=== PATIENT | female | born 1965 | race Caucasian/White ===

== ENCOUNTER 2017-11-16 04:22 | Observation (INO) ==
[2017-11-16] MEDS ORDERED: Dextrose Gel 15 GM/37.5 ML TUBE PO PRN ×2 (05:41)
[2017-11-16] MEDS ORDERED: *HR* Dextrose 50 % in Water (Syg) 50 ML SYRINGE IVP PRN (05:41)
[2017-11-16] MEDS ORDERED: Naloxone 0.4 MG/ML INJ IVP PRN (05:41)
[2017-11-16] MEDS ORDERED: D5% in Water 1,000 ML IVC PRN (05:41)
[2017-11-16] MEDS ORDERED: Acetaminophen 325 MG TABLET PO PRN (05:47)
[2017-11-16] MEDS ORDERED: *HR* HYDROcodone/Acet 5/325 mg TABLET PO PRN (05:47)
--- NOTE | 2017-11-16 05:59 | Internal Med History&Physical ---
Date of Encounter: 11/16/17 Time of Encounter: 05:15 Internal Medicine - H&P: HPI Chief complaint: chest pain Admitted From: Hospital to Hospital Transfer Plans for Post Hospital Care: Home History of present illness: Ms. John is a 52 year old female who presents in transfer from [facility] ER for complaints of chest pain. She presented there with chest pain that was resolved with minimal treatment. She was due to be admitted to the hospital service at [facility]. However, patient admission was canceled due to lack of cardiology staffing. Patient and physician therefore requested to transfer patient to [facility]. I accepted the patient in transfer. Upon my assessment of the patient, she is chest pain-free now and has no shortness of breath. She states her chest pain started yesterday abruptly without any exertion or activity. The pain kept recurring and was dull and achy with some stabbing nature to it. She has had no associated dyspnea or diaphoresis. She is diabetic and has risk factors for heart disease. Of note, however, is that she had a left heart catheterization in April of this year documenting minimal coronary disease of roughly 20% obstruction. She denies any history of blood clots, prolonged travel, or family history of blood clots. I spoke with the ER staff at [facility] and requested a d-dimer to be drawn. D- dimer was normal. I reviewed her EKG from [facility] and it appears to be normal with no acute ST-T wave changes. I also reviewed her recent Heart catheterization from earlier this year. Past Med Surg Social Fam HX - Past Medical History Attestation: Yes The following information was validated with the patient. Source: patient, old records reviewed, other ([facility] records) Medical history: asthma, diabetes, GERD, hyperlipidemia, hypertension, thyroid disease Additional medical history: OBESITY, CARPAL TUNNEL RIGHT WRIST Psychiatric history: no psych history - Past Surgical History Surgical History: cholecystectomy, hysterectomy, orthopedic, other Additional surgical history: r hand,back,bladder,shoulder - Social History Smoking Status: Never smoker Smokeless Tobacco Status: No Alcohol use: none Drug use: none Current living situation: Home, With Family Activity Level: Independent ambulation Recent Out of Country Travel Within the Last 8 Weeks: No - Family History Mother Living Status: Hx Family Cardiac Disorders: Yes Father Living Status: Hx Family Cardiac Disorders: No Internal Medicine - H&P: Meds Aspirin Enteric Coated [Aspirin EC] 81 mg PO DAILY 12/17/14 [History] Albuterol Sulfate [Ventolin Hfa] 2 puff IH Q4-6H PRN 10/23/15 [History] Ezetimibe [Zetia] 10 mg PO DAILY 10/23/15 [History] Insulin Regular, Human [Humulin R U-500 Kwikpen] 60 - 150 unit SQ TIDWM #0 10/22 [History] Metoprolol [Lopressor] 25 mg PO BID 10/23/15 [History] Melatonin [Melatin] 6 mg PO HS PRN 04/19/17 [History] amLODIPine [Norvasc] 5 mg PO DAILY 04/19/17 [History] Buspirone HCl [Buspar] 10 mg PO BID 05/26/17 [History] Fenofibrate Nanocrystallized [Tricor] 145 mg PO DAILY 05/26/17 [History] Lansoprazole [Prevacid] 30 mg PO QAM #20 capsule. 05/28/17 [Rx] Atorvastatin [Lipitor] 40 mg PO HS 06/29/17 [History] Citalopram Hydrobromide [Citalopram HBr] 40 mg PO DAILY 06/29/17 [History] Dicyclomine [Bentyl] 20 mg PO QID 06/29/17 [History] Gabapentin [Neurontin] 600 mg PO TID 06/29/17 [History] Levothyroxine Sodium [Synthroid] 200 mcg PO DAILY 06/29/17 [History] Meloxicam [Mobic] 15 mg PO DAILY 06/29/17 [History] Omeprazole [PriLOSEC] 40 mg PO DAILY 06/29/17 [History] OxyCODONE/APAP 5/325 [Percocet 5/325 MG] 1 tab PO BID PRN 06/29/17 [History] Sitagliptin Phos/Metformin HCl [Janumet 50-1,000 mg Tablet] 1 tab PO DAILY 06/29 [History] Ondansetron ODT [Zofran ODT] 4 mg SL Q6HR #10 tab.kvng 08/09/17 [Rx] Omeprazole 20 mg PO DAILY #30 tablet. 08/11/17 [Rx] Sucralfate [Carafate] 1 gm PO [facility] #56 tablet 08/11/17 [Rx] 3 Allergy/AdvReac Type Severity Reaction Status Date / Time ibuprofen [From Motrin] AdvReac Gastrointestinal Verified 06/29/17 07:35 Upset propoxyphene AdvReac Gastrointestinal Verified 06/29/17 07:35 [From Darvocet-N] Upset - Constitutional Constitutional: no chills, no fever(s) - EENT Eyes: no blurry vision, no change in vision Ears: no ear pain, no tinnitus Nose, mouth and throat: no nasal congestion, no sinus pressure, no sore throat - Cardiovascular Cardiovascular ROS IM: chest pain, no diaphoresis, no dyspnea, no dyspnea on exertion, no orthopnea, no syncope - Respiratory Respiratory: no cough, no hemoptysis, no chest congestion, no excessive phlegm production, no change in phlegm color - Gastrointestinal Gastrointestinal: no abdominal pain, no diarrhea, no hematemesis, no hematochezia, no melena, no vomiting - Genitourinary Genitourinary: no dysuria, no flank pain, no hematuria - Musculoskeletal Musculoskeletal ROS IM: no arthralgias, no back pain, no muscle cramps, no muscle weakness - Integumentary Integumentary IM: no rash, no jaundice - Neurological Neurological ROS: no dizziness, no focal weakness, no frequent falls, no headache(s) - Psychiatric Psychiatric: no anxiety, no depression - Endocrine Endocrine IM: no polydipsia, no polyuria - Allergic/Immunologic Allergic/Immunologic: no wheezing, no GI upset with certain foods - Constitutional Vitals: Temp Pulse Resp BP Pulse Ox 98.2 F 82 16 177/79 96 11/16/17 04:29 11/16/17 04:29 11/16/17 04:29 11/16/17 04:29 11/16/17 04:29 General appearance: Present: cooperative, A&O X 3, pleasant, no acute distress, answers questions appropriately Exam: see below - Head Head exam: Present: normal inspection - Eye Eye exam: Present: EOMI, PERRL. Absent: scleral icterus Pupils: Present: normal accommodation - ENT ENT exam: Present: mucous membranes dry, normal exam, normal oropharynx - Neck Neck exam general surgery: Present: full ROM, supple. Absent: tenderness, nuchal rigidity, thyromegaly - Respiratory Respiratory exam: Present: chest wall tenderness (reproducible left sided chest wall pain -- identical to pain she had at home), CTAB. Absent: rales, rhonchi, wheezes - Cardiovascular Cardiovascular exam: Present: distant heart sounds, RRR, +S1, +S2. Absent: diastolic murmur, systolic murmur - GI/Abdominal GI/Abdominal exam: Present: normal bowel sounds, soft. Absent: hepatomegaly, mass, splenomegaly, tenderness - Extremities Exam Extremities exam: Present: full ROM, normal capillary refill, warm, radial pulses palpable and symmetrical. Absent: calf tenderness, joint swelling, pedal edema, tenderness - Back Exam Back exam: Absent: CVA tenderness (L), CVA tenderness (R) - Neurological Exam Neurological exam: Present: alert, CN II-XII intact, oriented X3, no focal deficits - Psychiatric Psychiatric exam: Present: normal affect, normal mood - Skin Skin exam: Present: dry, intact, warm Internal Med - H&P Results - Labs Labs: I reviewed her labs from [facility] they include the following: WBC 10.0 Hemoglobin 12.3 Hematocrit 36.5 Platelets 289 Sodium 140 Potassium 4.2 Chloride 107 Carbon dioxide 23 Glucose 275 BUN 14 Creatinine 0.73 Troponin less than 0.03 D-dimer 221 (negative) - EKG Data -: EKG Interpreted by Myself - EKG Data Prior EKG available for review: no EKG comments: 11/16/17 06:04 NSR; no acute ST-T changes - Assessment and plan (1) Chest pain Current Visit: Yes Status: Acute Assessment and plan: 1. Will trend troponins and EKG's. 2. Will consult cardiology if above abnormal. 3. Recent [facility] results reviewed and essentially negative. 4. Suspect musculoskeletal etiology as pain is easily reproducible on palpation. Qualifiers: Chest pain type: intercostal pain Qualified Code(s): R07.82 - Intercostal pain (2) IDDM (insulin dependent diabetes mellitus) Current Visit: Yes Status: Chronic Assessment and plan: 1. Will place on SSI and monitor glucose. 2. Resume home basal insulin once meds confirmed. (3) DVT prophylaxis Current Visit: Yes Status: Acute Assessment and plan: 1. Heparin SQ.
[2017-11-16 06:11] LABS: Hemoglobin 12.3 g/dL (11.5-15.4); Immature Granulocytes % 1.2 % (0-4); Lymphocytes % 9.5 %; Mean Corpuscular HGB Conc 33.2 g/dL (31.6-35.5); Mean Corpuscular Hemoglobin 27.5 pg (28.0-33.3); Mean Corpuscular Volume 82.8 fL (83.0-100.0); Mean Platelet Volume 8.7 fL (9.4-12.4); Platelet Count 245 K/mcL (140-400); Red Blood Count 4.47 M/mcL (3.82-4.97); Segmented Neutrophils % 88.1 %
[2017-11-16 06:12] LABS: Basophils % 0.2 %; Lymphocytes # 1.1 K/mcL (0.6-4.6); Monocytes # 0.1 K/mcL (0.0-1.3); Neutrophils # 10.6 K/mcL (1.6-8.9)
[2017-11-16 06:20] LABS: Prothrombin Time 11.4 Seconds (9.4-12.1)
[2017-11-16 06:24] LABS: Activated Partial Thrombo Time 33.4 Seconds (26.0-36.0)
[2017-11-16 06:25] LABS: Alanine Aminotransferase 21 Units/L (7-52); Albumin 4.1 g/dL (3.5-5.7); Albumin/Globulin Ratio 1.5 (1.1-2.2); Alkaline Phosphatase 70 Units/L (34-104); Aspartate Amino Transferase 11 Units/L (13-39); BUN/Creatinine Ratio 26 (6-26); Bilirubin,Total 0.3 mg/dL (0.3-1.0); Blood Urea Nitrogen 17 mg/dL (6-20); Calcium 9.3 mg/dL (8.6-10.3); Carbon Dioxide 23 mEq/L (23-29); Chloride 106 mEq/L (98-107); Globulin 2.8 g/dL (2.4-3.5); Glucose 266 mg/dL (70-105); Magnesium 2.1 mg/dL (1.6-2.6); Osmolality,Calculated 295 (280-300); Sodium 137 mEq/L (136-145); Total Protein 6.9 g/dL (6.4-8.9); eGFR For Non-African Americans > 60 (> 60)
[2017-11-16] MEDS: *HR* Heparin 5,000 UNIT/ML VIAL SQ SCH ×2 (06:25→14:03)
[2017-11-16] MEDS: Insulin LISPRO 300 UNITS/3 ML VIAL SQ SCH ×2 (08:50→11:49)
[2017-11-16] MEDS ORDERED: Gabapentin 300 MG CAPSULE PO SCH (09:00)
[2017-11-16] MEDS ORDERED: Valsartan 160 MG TABLET PO SCH (09:00)
[2017-11-16] MEDS ORDERED: amLODIPine 5 MG TABLET PO SCH (09:00)
[2017-11-16] MEDS ORDERED: Fenofibrate 54 MG TABLET PO SCH (09:00)
[2017-11-16] MEDS ORDERED: hydroCHLOROthiazide 25 MG TABLET PO SCH (09:00)
[2017-11-16] MEDS ORDERED: Aspirin Enteric Coated 81 MG Tablet PO SCH (09:00)
[2017-11-16] MEDS ORDERED: Sucralfate 1 GM TABLET PO SCH (11:30)
[2017-11-16 11:38] VITALS: BP 128/75
--- NOTE | 2017-11-16 14:07 | Discharge Summary ---
- NOTES TO OUTPATIENT PROVIDER Notes to Outpatient Provider: Chest pain, likely musculoskeletal; Orders not resulted at time of discharge: Pending orders 11/16/17 18:00 Troponin I Q6H 11/17/17 04:00 Lipid Panel AM 0400 Date of Encounter: 11/16/17 Time of Encounter: 09:00 - Discharge Diagnosis (1) Chest pain Priority: Primary Status: Acute Qualifiers: Chest pain type: intercostal pain Qualified Code(s): R07.82 - Intercostal pain (2) IDDM (insulin dependent diabetes mellitus) Priority: Secondary Status: Chronic (3) Essential hypertension Priority: Secondary Status: Chronic (4) Hypothyroidism Priority: Secondary Status: Chronic Qualifiers: Hypothyroidism type: unspecified Qualified Code(s): E03.9 - Hypothyroidism , unspecified Hospital course: Ms. John is a 52 year old female with the above medical problems, who was admitted with sudden new onset of retrosternal chest pain. Patient does follow with cardiology as an outpatient due to chronic issues with chest pain and also underwent left heart catheterization in Apr 2017, that showed minimal coronary artery disease with about 20% stenosis in mid LAD and mid RCA. Patient's initial labs, chest x-ray and EKG showed no acute abnormality. Serial troponins and telemetry remained uneventful. She was noted to have elevated blood pressure and sugars at admission, which are now better controlled after receiving her home medications. She is medically stable for discharge with outpatient cardiology follow-up. Discharge discussed with: patient, nurse - Time Spent with Patient Total time spent providing and/or coordinating discharge services: Greater than 30 minutes (40 min) - Discharge Medications Home Medications: Aspirin Enteric Coated [Aspirin EC] 81 mg PO DAILY 12/17/14 [History] Albuterol Sulfate [Ventolin Hfa] 2 puff IH Q4-6H PRN 10/23/15 [History] Ezetimibe [Zetia] 10 mg PO DAILY 10/23/15 [History] Insulin Regular, Human [Humulin R U-500 Kwikpen] 60 - 150 unit SQ TIDWM #0 10/22 [History] Metoprolol [Lopressor] 25 mg PO BID 10/23/15 [History] Melatonin [Melatin] 6 mg PO HS PRN 04/19/17 [History] amLODIPine [Norvasc] 5 mg PO DAILY 04/19/17 [History] Buspirone HCl [Buspar] 10 mg PO BID 05/26/17 [History] Fenofibrate Nanocrystallized [Tricor] 145 mg PO DAILY 05/26/17 [History] Citalopram Hydrobromide [Citalopram HBr] 40 mg PO DAILY 06/29/17 [History] Dicyclomine [Bentyl] 20 mg PO QID 06/29/17 [History] Gabapentin [Neurontin] 600 mg PO TID 06/29/17 [History] Meloxicam [Mobic] 15 mg PO DAILY 06/29/17 [History] Omeprazole [PriLOSEC] 40 mg PO DAILY 06/29/17 [History] Sitagliptin Phos/Metformin HCl [Janumet 50-1,000 mg Tablet] 1 tab PO DAILY 06/29 [History] Ondansetron ODT [Zofran ODT] 4 mg SL Q6HR #10 tab.rapdis 08/09/17 [Rx] Sucralfate [Carafate] 1 gm PO QIDAC #56 tablet 08/11/17 [Rx] Atorvastatin Calcium [Lipitor] 80 mg PO HS 11/16/17 [History] Levothyroxine Sodium [Levoxyl] 200 mcg PO DAILY 11/16/17 [History] Olmesartan/Hydrochlorothiazide [Benicar Hct 20-12.5 mg Tablet] 1 tab PO DAILY [History] Oxycodone HCl/Acetaminophen [Percocet 7.5-325 mg Tablet] 1 tab PO TID PRN [History] Allergies/Adverse Reactions: 3 Allergy/AdvReac Type Severity Reaction Status Date / Time ibuprofen [From Motrin] AdvReac Gastrointestinal Verified 06/29/17 07:35 Upset propoxyphene AdvReac Gastrointestinal Verified 06/29/17 07:35 [From Darvocet-N] Upset Date of admission: 11/16/17 04:22 Primary care physician: PCP NONE Discharging clinician: Niharika Morfin Anticipated date of discharge: 11/16/17 - Constitutional Vitals: Temp Pulse Resp BP Pulse Ox 97.9 F 61 16 128/75 96 11/16/17 11:36 11/16/17 11:36 11/16/17 11:36 11/16/17 11:36 11/16/17 11:36 General appearance: Present: cooperative, A&O X 3, pleasant, answers questions appropriately Exam: . - Cardiovascular Cardiovascular exam: Present: RRR, +S1, +S2. Absent: diastolic murmur, gallop, rubs, systolic murmur - Patient Status Disposition: Home, Self-Care Condition: Good Functional capacity at discharge: independent ambulation Overall status at discharge: patient is progressing back to baseline - Discharge Instructions Follow Up With: NONE,PCP [Primary Care Provider] - Additional Instructions: F/up with PCP in 1-2 weeks F/up with Cardiology as needed - Diet and Activity Activity: resume usual activities as tolerated Diet: diabetic diet, low fat, low cholesterol, low salt diet
[2017-11-16] MEDS ORDERED: Insulin LISPRO 300 UNITS/3 ML VIAL SQ SCH (21:00)
--- NOTE | 2017-11-19 13:08 | Electrocardiograph Report ---
[address] [place] [address] Test Date: 2017-11-16 Pat Name: Sylwia John Department: 112 Room: 2A Gender: F Lawyer Criminal: : 1965 Requested By: Taran Acuna Order Number: [id number] Reading MD: Bassam Ricks Measurements Intervals Isabella Rate: 86 P: AL: 0 QRS: 79 QRSD: 100 T: 38 QT: 368 QTc: 411 Interpretive Statements SINUS RHYTYM WITH PACS ABNORMAL RHYTHM ECG Electronically Signed On 11-19-2017 13:06:39 EDT by Bassam Ricks
== END 2017-11-16 14:45 | disposition home or self-care (01) ==
LOC: 2ANU → SUATTDRO 04:22
PROVIDERS: ADMIT Pediatrics; ATTEND Internal Medicine

== ENCOUNTER 2019-07-09 20:51 | Observation (INO) ==
[2019-07-09] MEDS ORDERED: Aspirin 81 MG TAB.CHEW PO ONE (20:57)
[2019-07-09 21:09] LABS: Basophils % 0.4 %; Eosinophils # 0.1 K/mcL (0.0-0.6); Eosinophils % 1.1 %; Hemoglobin 12.7 g/dL (11.5-15.4); Immature Granulocytes % 0.7 % (0-4); Lymphocytes # 2.8 K/mcL (0.6-4.6); Lymphocytes % 30.3 %; Mean Corpuscular HGB Conc 32.6 g/dL (31.6-35.5); Mean Corpuscular Hemoglobin 27.5 pg (28.0-33.3); Mean Corpuscular Volume 84.6 fL (83.0-100.0); Mean Platelet Volume 8.7 fL (9.4-12.4); Monocytes # 0.6 K/mcL (0.0-1.3); Neutrophils # 5.7 K/mcL (1.6-8.9); Platelet Count 278 K/mcL (140-400); Red Blood Count 4.61 M/mcL (3.82-4.97); Red Cell Distribution Width 13.3 % (11.5-14.5); Segmented Neutrophils % 61.5 %; White Blood Count 9.2 K/mcL (4.3-11.1)
[2019-07-09] MEDS: Nitroglycerin 0.4 MG TAB.SUBL SL PRN ×3 (21:10→21:22)
[2019-07-09 21:14] LABS: INR 1.1
[2019-07-09 21:17] LABS: Activated Partial Thrombo Time 40.1 Seconds (26.0-36.0)
[2019-07-09 21:33] LABS: BUN/Creatinine Ratio 34 (6-26); Blood Urea Nitrogen 42 mg/dL (6-20); Calcium 9.5 mg/dL (8.6-10.3); Carbon Dioxide 22 mEq/L (23-29); Chloride 100 mEq/L (98-107); Glucose 318 mg/dL (70-105); Osmolality,Calculated 299 (280-300); Potassium 4.2 mEq/L (3.5-5.1); Sodium 133 mEq/L (136-145); Troponin I < 0.03 ng/mL (< 0.04); eGFR For African Americans 55 (> 60); eGFR For Non-African Americans 46 (> 60)
[2019-07-09] MEDS ORDERED: Ondansetron ODT 4 MG TAB.RAPDIS SL PRN (23:38)
[2019-07-09] MEDS ORDERED: Albuterol 2.5 MG/3 ML NEBULIZER IH PRN (23:38)
[2019-07-09] MEDS ORDERED: *HR* Dextrose 50 % in Water (Syg) 50 ML SYRINGE IVP PRN (23:38)
[2019-07-09] MEDS ORDERED: Naloxone 0.4 MG/ML INJ IVP PRN (23:38)
[2019-07-09] MEDS ORDERED: Dextrose Gel 15 GM/37.5 ML TUBE PO PRN ×2 (23:38)
[2019-07-09] MEDS ORDERED: D5% in Water 1,000 ML IVC PRN (23:38)
[2019-07-09] MEDS ORDERED: GI Cocktail 40 ML EACH PO ONE (23:46)
[2019-07-09] MEDS ORDERED: Melatonin 3 MG TABLET PO PRN (23:49)
[2019-07-10 00:30] LABS: VBG HCO3 25 mEq/L (21-27); VBG PCO2 46 mmHg (41-51); VBG PH 7.35 pH Units (7.32-7.42); VBG PO2 45 mmHg (25-50)
[2019-07-10 00:30] LABS: Basophils % 0.3 %; Eosinophils # 0.1 K/mcL (0.0-0.6); Eosinophils % 1.4 %; Hemoglobin 12.4 g/dL (11.5-15.4); Immature Granulocytes % 0.4 % (0-4); Lymphocytes # 2.4 K/mcL (0.6-4.6); Lymphocytes % 25.5 %; Mean Corpuscular HGB Conc 32.6 g/dL (31.6-35.5); Mean Corpuscular Hemoglobin 27.4 pg (28.0-33.3); Mean Corpuscular Volume 84.1 fL (83.0-100.0); Mean Platelet Volume 8.6 fL (9.4-12.4); Monocytes # 0.5 K/mcL (0.0-1.3); Monocytes % 5.4 %; Neutrophils # 6.2 K/mcL (1.6-8.9); Platelet Count 260 K/mcL (140-400); Red Blood Count 4.52 M/mcL (3.82-4.97); Red Cell Distribution Width 13.2 % (11.5-14.5); White Blood Count 9.2 K/mcL (4.3-11.1)
[2019-07-10] MEDS: Gabapentin 300 MG CAPSULE PO SCH ×3 (00:37→15:23)
[2019-07-10] MEDS: 0.9 % Sodium Chloride 1,000 ML IVC SCH ×2 (00:38→05:48)
[2019-07-10] MEDS: Insulin LISPRO 300 UNITS/3 ML VIAL SQ SCH ×3 (00:38→14:59)
[2019-07-10 00:46] LABS: Alanine Aminotransferase 14 Units/L (7-52); Albumin 4.4 g/dL (3.5-5.7); Albumin/Globulin Ratio 1.4 (1.1-2.2); Alkaline Phosphatase 76 Units/L (34-104); Aspartate Amino Transferase 8 Units/L (13-39); BUN/Creatinine Ratio 35 (6-26); Bilirubin,Total 0.2 mg/dL (0.3-1.0); Blood Urea Nitrogen 38 mg/dL (6-20); Calcium 9.2 mg/dL (8.6-10.3); Carbon Dioxide 23 mEq/L (23-29); Chloride 103 mEq/L (98-107); Globulin 3.1 g/dL (2.4-3.5); Glucose 220 mg/dL (70-105); Magnesium 2.1 mg/dL (1.6-2.6); Osmolality,Calculated 298 (280-300); Phosphorous 4.3 mg/dL (2.7-4.5); Potassium 4.2 mEq/L (3.5-5.1); Sodium 136 mEq/L (136-145); Total Protein 7.5 g/dL (6.4-8.9); eGFR For African Americans > 60 (> 60); eGFR For Non-African Americans 52 (> 60)
[2019-07-10] MEDS ORDERED: Ipratropium/Albuterol Neb 3 ML ONE (00:59)
[2019-07-10] MEDS: Ipratropium/Albuterol Neb 3 ML IH SCH ×4 (01:01→16:23)
[2019-07-10 06:51] LABS: Estimated Average Glucose 194 mg/dl
[2019-07-10] MEDS ORDERED: 0.9 % Sodium Chloride 1,000 ML IVC SCH (09:00)
[2019-07-10] MEDS ORDERED: amLODIPine 5 MG TABLET PO SCH (09:00)
[2019-07-10] MEDS ORDERED: Aspirin Enteric Coated 81 MG Tablet PO SCH (09:00)
[2019-07-10] MEDS ORDERED: lisinopriL 20 MG TABLET PO SCH (09:00)
[2019-07-10] MEDS ORDERED: Regadenoson 0.4 MG/5 ML SYRINGE IVP ONE (10:01)
[2019-07-10 15:25] VITALS: BP 109/69
[2019-07-11] MEDS ORDERED: *HR* Heparin 5,000 UNIT/ML VIAL SQ SCH (06:00)
== END 2019-07-10 17:13 | disposition home or self-care (01) ==
LOC: 3BNU 20:51 → EMEROOARM 20:51 → SUATTDRO 21:54 → 3BNU 22:25
PROVIDERS: ADMIT Internal Medicine; ATTEND Internal Medicine

== ENCOUNTER 2021-05-27 14:02 | Observation (INO) ==
[2021-05-27] MEDS ORDERED: Melatonin 3 MG TABLET PO PRN (16:55)
[2021-05-27] MEDS ORDERED: Acetaminophen 325 MG TABLET PO PRN (16:55)
[2021-05-27] MEDS ORDERED: Ondansetron 4 MG/2 ML VIAL IVP PRN (16:55)
[2021-05-27] MEDS ORDERED: *HR* Dextrose 50 % in Water (Syg) 50 ML SYRINGE IVP PRN (18:19)
[2021-05-27] MEDS ORDERED: D5% in Water 1,000 ML IVC PRN (18:19)
[2021-05-27] MEDS ORDERED: Dextrose 4 GM Chewable Tablets PO PRN ×2 (18:19)
[2021-05-27] MEDS: Insulin LISPRO 300 UNITS/3 ML VIAL SUBQ SCH (18:32)
[2021-05-27] MEDS ORDERED: Insulin LISPRO 300 UNITS/3 ML VIAL SUBQ SCH (21:00)
[2021-05-28] MEDS ORDERED: Regadenoson 0.4 MG/5 ML SYRINGE IVP ONE (05:43)
[2021-05-28 06:02] LABS: Hematocrit 35.8 % (35.3-44.9); Hemoglobin 12.1 g/dL (11.5-15.4); Mean Corpuscular HGB Conc 33.8 g/dL (31.6-35.5); Mean Corpuscular Hemoglobin 28.1 pg (28.0-33.3); Mean Corpuscular Volume 83.3 fL (83.0-100.0); Mean Platelet Volume 8.9 fL (9.4-12.4); Platelet Count 241 K/mcL (140-400); Red Cell Distribution Width 13.3 % (11.5-14.5); White Blood Count 7.6 K/mcL (4.3-11.1)
[2021-05-28 06:05] LABS: INR 1.1; Prothrombin Time 12.1 Seconds (9.4-12.1)
[2021-05-28 07:04] VITALS: O2SAT 95
[2021-05-28 08:10] LABS: BUN/Creatinine Ratio 17 (6-26); Blood Urea Nitrogen 12 mg/dL (6-20); Calcium 8.8 mg/dL (8.6-10.3); Carbon Dioxide 23 mEq/L (23-29); Chloride 101 mEq/L (98-107); Chol/HDL Ratio 6.4 (0-4.9); Cholesterol 254 mg/dL (< 200); Glucose 309 mg/dL (70-105); HDL Cholesterol 40 mg/dL (40-59); LDL Cholesterol,Calculated 168 mg/dL (< 100); Magnesium 1.7 mg/dL (1.6-2.6); Osmolality,Calculated 291 (280-300); Phosphorous 3.1 mg/dL (2.7-4.5); Sodium 135 mEq/L (136-145); Triglycerides 231 mg/dL (< 150); Troponin I < 0.03 ng/mL (< 0.04); eGFR For African Americans > 60 (> 60); eGFR For Non-African Americans > 60 (> 60)
[2021-05-28] MEDS: Insulin LISPRO 300 UNITS/3 ML VIAL SUBQ SCH ×2 (08:16→11:16)
[2021-05-28] MEDS ORDERED: Aspirin 81 MG TAB.CHEW PO SCH (09:00)
[2021-05-28 10:47] VITALS: BP 160/79; PULSE 82; TEMP 97.6
[2021-05-28 11:00] LABS: Estimated Average Glucose 197 mg/dl; Hemoglobin A1C 8.5 %
[2021-05-28] MEDS ORDERED: Perflutren Lipid Microsphere 1.3 ML in 0.9 % Sodium Chloride 8.7 ML IVP PRN (12:15)
[2021-05-28] MEDS ORDERED: *HR* Heparin 5,000 UNIT/ML VIAL SQ SCH (18:00)
== END 2021-05-28 12:26 | disposition home or self-care (01) ==
LOC: 3BNU → SUATTDRO 15:59
PROVIDERS: ADMIT Internal Medicine; ATTEND Internal Medicine